=== PATIENT | male | born 2000 ===

== ENCOUNTER → 2022-07-22 | Outpatient (CLI) | payer OTHER | END | disposition home or self-care (01) | LOC: LAB 11:25 → LAB SHORT 11:25 | DX: J02.9 Acute pharyngitis, unspecified (principal) | CPT/HCPCS: 87081 ==

== ENCOUNTER 2024-11-20 10:30 | Day surgery (SDC) | payer OTHER ==
[~2024-11-20] VITALS: Ht 172.7 cm; Wt 125.4 kg
[~2024-11-20 10:30] MED LIST: Oxymetazoline 0.05% Nasal Relief Spray 15mL BTL ONE
[2024-11-20] MEDS ORDERED: Midazolam HCl 1MG / ML 2ML Vial ONE (11:30)
[2024-11-20] MEDS ORDERED: Tranexamic Acid 100 ML IV ONE (11:31)
[2024-11-20] MEDS ORDERED: FentaNYL Citrate 50 MCG/ML 2 ML Injection ONE (11:41)
[2024-11-20] MEDS ORDERED: Rocuronium Bromide 10 MG/ML 5ML Injection IV ONE (11:43)
[2024-11-20] MEDS ORDERED: Ketorolac Tromethamine 30mg Vial ONE (11:49)
[2024-11-20] MEDS ORDERED: Dexamethasone Sod Phos 10 MG/ML 1ML VIAL ONE (11:49)
[2024-11-20] MEDS ORDERED: Ondansetron HCl 2 MG / ML 2ML Vial ONE (11:49)
[2024-11-20] MEDS ORDERED: Sugammadex Sodium 200 MG/2ML SDV (100 MG/ML) ONE (11:50)
--- NOTE | 2024-11-20 11:54 | NUR ---
11/20/24 1154 Rebekah Han SINGLE DOSE OF TXA GIVEN IN THE OR AT 1141 BY ANESTHESIA
--- NOTE | 2024-11-20 12:14 | NUR ---
11/20/24 1214 Gracy Heller PT DROWSY, FOLLOWS COMMANDS, ANSWERS QUESTIONS. DENIES PAIN OR NAUSEA AT THIS TIME.
--- NOTE | 2024-11-20 12:53 | NUR ---
11/20/24 [id number] Gracy Heller PT IN RECLINER, EATING POPSICLE AND FAMILY BROUGHT TO BEDSIDE
[2024-11-20 12:54] VITALS: BP 146/94
== END 2024-11-20 13:16 | disposition home or self-care (01) ==
LOC: ORSCSDS 10:30
PROVIDERS: Otolaryngology
PROC: 0CBPXZZ Excision of Tonsils, External Approach (ICD-10-PCS; principal; 2024-11-20 12:30)
PROC: 0C5QXZZ Destruction of Adenoids, External Approach (ICD-10-PCS; principal; 2024-11-20 12:30)
DX: J35.8 Other chronic diseases of tonsils and adenoids (principal); G47.33 Obstructive sleep apnea (adult) (pediatric)
CPT/HCPCS: 88304; A9270; J1100; J1885; J2250; J2405; J2704; J3010; J7120